=== PATIENT | female | born 1970 | race Caucasian/White ===

== ENCOUNTER → 2016-08-14 | Outpatient (CLI) | payer OTHER ==
--- NOTE | 2016-08-14 09:44 | DIAGNOSTIC IMAGING REPORT ---
TWO VIEW CHEST CLINICAL HISTORY: Chronic cough. FINDINGS: PA and lateral chest radiographs are obtained. No prior studies are available for comparison at the time of dictation. The examination is degraded by large body habitus. The cardiomediastinal silhouette is unremarkable. The lungs and pleural spaces are clear. There is no pneumothorax. The bony thorax appears intact. IMPRESSION: No active disease in the chest. Electronically signed by: Sandro Raman M.D. 08/14/2016 9:42 AM Dictated Date/Time: 08/14/2016 9:41 AM
== END | disposition home or self-care (01) ==
LOC: C.RAD1850 09:28
PROVIDERS: ATTEND Internal Medicine Pulmonary Disease
DX: R05 Cough (principal)

== ENCOUNTER 2017-03-03 15:01 | Emergency (ER) | payer OTHER ==
[2017-03-03 15:04] VITALS: TEMP 37
[2017-03-03] MEDS ORDERED: VERA120T2 PO (15:17)
[2017-03-03] MEDS ORDERED: ASPI81TA28 PO (15:17)
[2017-03-03] MEDS ORDERED: MELO15TA4 PO (15:17)
[2017-03-03] MEDS ORDERED: LISI20TA3 PO (15:17)
[2017-03-03] MEDS ORDERED: VERA240T20 PO (15:17)
[2017-03-03] MEDS ORDERED: ATOR-22 PO (15:17)
[2017-03-03] MEDS ORDERED: XYLOCAINE 1%/SOD BICARB 20 ML VIAL INFIL ONE (15:30)
[2017-03-03] MEDS ORDERED: BUPIVACAINE 0.5 % 5 MG/1 ML MPF 30ML VIAL INFIL ONE (15:30)
[2017-03-03] MEDS ORDERED: GELATIN SPONGE 12-7MM EXT ONE (15:30)
--- NOTE | 2017-03-03 15:44 | EMERGENCY ROOM VISIT NOTE ---
ED Visit Note First contact with patient: 15:08 CHIEF COMPLAINT: Fingertip avulsion HISTORY OF PRESENT ILLNESS: This 46-year-old female patient presents to the emergency department approximately 5 hours after cutting the tip of the left fourth finger with a sharp knife while cutting sweet potatoes. The bleeding has not stopped. There is no weakness or numbness of the area. Tetanus shot is up-to-date. Full range of motion of the left fourth finger. The patient is right handed. The patient rates the pain as stinging and 4/10. REVIEW OF SYSTEMS: A 6 system review of systems was completed with positives and pertinent negatives listed in the HPI. ALLERGIES: Moxifloxacin MEDICATIONS: Lipitor, Mobic, aspirin PMH: Hyperlipidemia, hypertension SOCIAL HISTORY: The patient lives locally with family. She denies drug, alcohol , tobacco use. PHYSICAL EXAM: Vital Signs: Reviewed Nurse's notes, vital signs stable. GENERAL : This is a 46-year-old white female, in no acute distress, well-developed, well -nourished. SKIN: There is a 0.5 cm long avulsion laceration on the tip of the left fourth finger. It is superficial and the top layer of skin has been avulsed. There is no foreign material in the wound and it looks clean. There is active bleeding. No deep structures are seen in the base of the wound. Extension and flexion of the finger is full and strong. Sensation to pain and light touch is intact. EMERGENCY DEPARTMENT COURSE: I examined the patient. Verbal consent was obtained to perform the procedure. The left fourth finger was cleaned with saline and betadine. Gelfoam was applied to the avulsion laceration and the area was dressed with a pressure dressing. The bleeding stopped. The patient tolerated the procedure well. The patient was discharged home in stable condition. I attest that I have personally reviewed the patient's current medication list. Blood Pressure Screening: Patient was found to have a slightly elevated blood pressure due to circumstances. The patient is under the care of her PCP regarding her elevated blood pressure. She will continue to be monitored there. DIFFERENTIAL DIAGNOSIS: Avulsion, laceration, fracture, arterial bleed, and others. DIAGNOSIS: Avulsion laceration of the left fourth fingertip Current/Historical Medications Scheduled Aspirin (Aspirin Ec), 81 MG PO DAILY Atorvastatin (Lipitor), 20 MG PO DAILY Lisinopril (Prinivil), 20 MG PO DAILY Meloxicam (Mobic), 15 MG PO DAILY Verapamil Sust Rel (Calan Sr Ext Rel), 240 MG PO QPM Verapamil Sust Rel (Calan Sr Ext Rel), 120 MG PO QAM Allergies Coded Allergies: Moxifloxacin (Verified Allergy, Severe, HIVES/NAUSEA, 03/03/17) Vital Signs Date Time Temp Pulse Resp B/P (MAP) Pulse Ox O2 Delivery O2 Flow Rate FiO2 03/03/17 15:04 37.0 77 20 157/90 95 Room Air Departure Information Impression Primary Impression: Fingertip avulsion Dispostion Home / Self-Care Condition GOOD Referrals Dwayne Harkins M.D. (PCP) Patient Instructions ED Gelfoam Dressing, [facility] Additional Instructions The gelfoam will fall off on its own. You may change the outer bandage as needed. Please read gelfoam handout. Proper wound care is essential for adequate wound healing and infection prevention. You can shower and clean the wound with soap and water. Do not scour over the wound, pat dry with a towel. Do not submerse the wound (i.e. bathe or dish wash) until the wound has fully healed. You can use an antibiotic ointment with a dressing over the wound for the next 3-4 days. After this time you may leave the wound dry and open to the air. Return to the ED for any redness, swelling, pus-like drainage, significant pain , or bleeding not easily controlled with direct pressure. Please follow-up with your PCP for re-check of the wound in 2-3 days. Problem Qualifiers Primary Impression: Fingertip avulsion Encounter type: initial encounter Qualified Codes: S61.209A - Unspecified open wound of unspecified finger without damage to nail, initial encounter
[2017-03-03 15:56] VITALS: BP 157/90; PULSE 77; O2SAT 95
== END 2017-03-03 15:56 | disposition home or self-care (01) ==
LOC: C.EDB 15:03 → C.EDD 15:56
DX: S61.205A Unspecified open wound of left ring finger without damage to nail, initial encounter (principal); W26.0XXA Contact with knife, initial encounter; Y93.G1 Activity, food preparation and clean up; E78.5 Hyperlipidemia, unspecified; I10 Essential (primary) hypertension

== ENCOUNTER 2017-05-28 17:22 | Emergency (ER) | payer OTHER ==
[~2017-05-28] VITALS: Ht 172.7 cm; Wt 137.1 kg
[~2017-05-28 17:22] MED LIST: ASPI81TA28 PO; ATOR-22 PO; LISI20TA3 PO; MELO15TA4 PO; VERA120T2 PO; VERA240T20 PO
[2017-05-28 17:25] VITALS: TEMP 37.1; Ht 172.7 cm; Wt 137.1 kg
[2017-05-28] MEDS ORDERED: FAMOTIDINE 20MG/5ML IV PUSH IV STA (17:47)
--- NOTE | 2017-05-28 18:29 | DIAGNOSTIC IMAGING REPORT ---
SINGLE VIEW CHEST CLINICAL HISTORY: Atypical chest pain. FINDINGS: An AP, portable, upright chest radiograph is compared to study dated 08/14/2016. The examination is degraded by portable technique, apical lordotic positioning, and patient rotation. The cardiomediastinal silhouette is unremarkable. The lungs and pleural spaces are clear. No pneumothorax is seen. The bony thorax is grossly intact. IMPRESSION: No active disease in the chest. Electronically signed by: Sandro Raman M.D. 05/28/2017 6:27 PM Dictated Date/Time: 05/28/2017 6:27 PM
[2017-05-28] MEDS ORDERED: ASCA500 PO (18:33)
[2017-05-28 19:14] LABS: BASO % 0.3 %; BASO ABS # 0.03 K/uL (0-0.2); EOS % 1.7 %; EOS ABS # 0.16 K/uL (0-0.5); HEMATOCRIT 39.4 % (37-47); HEMOGLOBIN 13.4 g/dL (12.0-16.0); IG# 0.02 K/uL (0.00-0.02); LYMPH % 22.8 %; MEAN CELL VOLUME 89.5 fL (80-100); MEAN CORPUSCULAR HEMOGLOBIN 30.5 pg (25-34); MONO % 7.6 %; NEUT % 67.4 %; NEUT ABS # 6.22 K/uL (1.4-6.5); PLATELET COUNT 295 K/uL (130-400); RED CELL DISTRIBUTION WIDTH SD 42.3 fL (36.4-46.3); WHITE BLOOD COUNT 9.23 K/uL (4.8-10.8)
[2017-05-28 19:30] LABS: PTT PATIENT 28.5 SECONDS (21.0-31.0)
[2017-05-28 19:31] LABS: ALBUMIN 3.8 gm/dl (3.4-5.0); ALT/SGPT 22 U/L (12-78); BLOOD UREA NITROGEN 25 mg/dl (7-18); CALCIUM 9.1 mg/dl (8.5-10.1); CARBON DIOXIDE 25 mmol/L (21-32); CREATININE 0.72 mg/dl (0.60-1.20); GLUCOSE 97 mg/dl (70-99); LIPASE 215 U/L (73-393); POTASSIUM 3.7 mmol/L (3.5-5.1); SODIUM 137 mmol/L (136-145)
[2017-05-28 19:37] LABS: ALKALINE PHOSPHATASE 98 U/L (45-117); AST/SGOT 11 U/L (15-37); CKMB < 0.5 ng/ml (0.5-3.6); TOTAL PROTEIN 7.7 gm/dl (6.4-8.2)
[2017-05-28] MEDS ORDERED: OPTIRAY 320 IV PRN (20:15)
--- NOTE | 2017-05-28 20:59 | DIAGNOSTIC IMAGING REPORT ---
CT ANGIOGRAM OF THE CHEST CLINICAL HISTORY: Atypical chest pain. COMPARISON STUDY: Chest x-ray dated 05/28/2017. TECHNIQUE: Following the IV administration of 101 cc of Optiray 320, CT angiogram of the chest was performed from the upper abdomen to the thoracic inlet utilizing the pulmonary embolus protocol. Images are reviewed in the axial, sagittal, and coronal planes. 3-D MIPS images are created and assessed. IV contrast was administered without complication. A dose lowering technique was utilized adhering to the principles of ALARA. CT DOSE: 738.68 mGy.cm FINDINGS: Thyroid: Imaged portions of the thyroid gland are normal in size and attenuation. Thoracic aorta: There is mild ectasia of the ascending thoracic aorta which measures up to 4.0 cm. The remainder of the thoracic aorta is normal in caliber and the arch demonstrates bovine variant anatomy. No dissection is seen. Pulmonary vasculature: The pulmonary trunk is normal in caliber. There are no filling defects identified in main, lobar, or segmental pulmonary branches to suggest pulmonary embolus. Heart: The heart is mildly enlarged and without pericardial effusion. Lungs and pleural spaces: The lungs and pleural spaces are clear. Mediastinum: There is no mediastinal lymphadenopathy. Ariadne: Clear. Axillae: There is no axillary lymphadenopathy. Upper abdomen: A small hiatal hernia is identified. Partially visualized upper abdominal viscera is otherwise within normal limits. Skeletal structures: No lytic or blastic bony lesions are seen. IMPRESSION: 1. There is no evidence of pulmonary embolus in the main, lobar, or segmental pulmonary arteries. 2. The lungs are clear. 3. Mild cardiomegaly. 4. There is mild ectasia of the ascending thoracic aorta which measures up to 4.0 cm. Electronically signed by: Sandro Raman M.D. 05/28/2017 8:57 PM Dictated Date/Time: 05/28/2017 8:54 PM
--- NOTE | 2017-05-28 21:30 | EMERGENCY ROOM VISIT NOTE ---
ED Visit Note First contact with patient: 17:36 The patient was seen and examined with Adrien Garcia PA-C. I agree with the history, physical and findings. Please see the note for disposition and details.
--- NOTE | 2017-05-28 22:48 | DIAGNOSTIC IMAGING REPORT ---
ULTRASOUND BILATERAL LOWER EXTREMITY VENOUS CLINICAL HISTORY: Elevated d-dimer. COMPARISON STUDY: No priors. TECHNIQUE: Real-time, grayscale, and color Doppler sonography of the deep veins of the right and left lower extremity was performed from the inguinal crease to the calf. Compression and augmentation were utilized. FINDINGS: There is no sonographic evidence of deep venous thrombosis identified in the right or left lower extremity. The common femoral, superficial femoral, and popliteal veins are patent and normally compressible bilaterally. The greater saphenous vein and the profunda femoris vein at the junction with the common femoral vein are clear in both legs. The visualized calf veins are patent bilaterally. IMPRESSION: There is no sonographic evidence of deep venous thrombosis identified in the right or left lower extremity. Electronically signed by: Sandro Raman M.D. 05/28/2017 10:47 PM Dictated Date/Time: 05/28/2017 10:46 PM
[2017-05-28 23:09] VITALS: BP 141/91; PULSE 79; O2SAT 96
--- NOTE | 2017-06-16 07:29 | EMERGENCY ROOM VISIT NOTE ---
History First contact with patient: 17:36 Chief Complaint: CHEST PAIN Stated Complaint: CHEST PAIN,L ARM PAIN,BACK PAIN,NAUSEA,INDIGESTION Nursing Triage Summary: patient c/o left sided chest pain that radiates to back into left shoulder and left neck. denies SOB pain intermittent x 3 days but put incresed 2 hours ago. History of Present Illness The patient is a 46 year old female who presents to the Emergency Room with complaints of 3 day history of left shoulder pain, neck pain, left upper extremity pain and dyspepsia. The patient reports that the pain started in the left posterior shoulder 3 days ago, then started to radiate into the neck and jaw. The patient reports mild left-sided chest pain without shortness of breath. The patient denies any recent chest injury. The patient does have a strong family history of coronary artery disease. Her father at the age of 44 from myocardial infarction. The patient has a history of hypertension, hypercholesterolemia and hyperlipidemia. The patient reports that she did have an abnormal ECG approximately 6 months ago, and underwent a dobutamine stress test that was normal. This was performed by Dr. Wills. She was noted to have a blood pressure of 125/180 with a stress test. She is currently on a combination of verapamil and lisinopril for her blood pressure. The patient does report a history of reflux, and takes Prilosec as needed. The patient is wondering whether her pain could be secondary to her gallbladder. The patient reports that the pain did significantly worsen after eating a meal with a lot of gravy 3 days ago. She denies any diaphoresis, nausea or lower abdominal pain. The patient also denies any history of neck problems. She denies any urinary symptoms, constipation or diarrhea. She denies history of prior cardiopulmonary disease except as indicated previously. She currently rates her discomfort a 5 out of 10. Review of Systems HEENT: Denies dizziness, visual problems, hearing loss, tinnitus. Denies difficulty swallowing or oral lesions. PULMONARY: Denies cough, shortness of breath, sputum production or hemoptysis. CARDIOVASCULAR: Denies palpitations, dyspnea on exertion, orthopnea or peripheral edema. GASTROINTESTINAL: Denies diarrhea, constipation, nausea, vomiting, or abdominal pain. Otherwise see history of present illness for history of acid reflux. GENITOURINARY: Denies dysuria, frequency, urgency or nocturia. NEUROLOGIC: Denies history of epilepsy, CVA, TIA or chronic headaches. MUSCULOSKELETAL: Denies history of joint tenderness/swelling. SKIN: Denies rashes or lesions. PSYCHIATRIC: Denies history of depression or mental illness. ENDOCRINE: Denies history of diabetes or thyroid disorders. Past Medical/Surgical History Medical Problems: (1) Essential (Primary) Hypertension (2) GERD (gastroesophageal reflux disease) (3) Hypercholesterolemia (4) Hyperlipidemia, Unspecified Social History Smoking Status: Never Smoker Alcohol Use: occasionally Marital Status: Housing Status: lives with family Occupation Status: employed Current/Historical Medications Scheduled Ascorbic Acid (Vitamin C), 500 MG PO DAILY Aspirin (Aspirin Ec), 81 MG PO DAILY Atorvastatin (Lipitor), 20 MG PO DAILY Lisinopril (Prinivil), 20 MG PO DAILY Meloxicam (Mobic), 15 MG PO DAILY Verapamil Sust Rel (Calan Sr Ext Rel), 240 MG PO HS Verapamil Sust Rel (Calan Sr Ext Rel), 120 MG PO QPM Physical Exam Vital Signs Date Time Temp Pulse Resp B/P (MAP) Pulse Ox O2 Delivery O2 Flow Rate FiO2 05/28/17 23:09 79 141/91 96 05/28/17 22:17 70 05/28/17 19:17 69 20 134/85 98 Room Air 05/28/17 19:04 Room Air 05/28/17 17:47 75 05/28/17 17:25 37.1 75 18 159/88 97 Room Air Physical Exam CONSTITUTIONAL: Morbidly female, alert and oriented X 3 with positive affect. Patient is not appear in any acute distress on exam. HEENT: Normocephalic, atraumatic. Pupils equal, round and reactive. No scleral icterus or conjunctival injection/pallor. NECK: Full active range of motion without discomfort. Negative lateral gaze test, and no tenderness to palpation of the cervical musculature or central cervical spine. RESPIRATORY: Clear to auscultation bilaterally with no wheezing, crackles, rhonchi or stridor. CARDIOVASCULAR: Regular rate and rhythm with no murmurs, rubs or gallops. GASTROINTESTINAL: Bowel sounds present in all quadrants. Soft and nontender to palpation. MUSCULOSKELETAL: Examination does not show any discomfort with palpation of the left posterior shoulder and neck region. No tenderness to palpation through the acromioclavicular joint, triceps or biceps musculature. Equal hand cylindrical mixer bilaterally. No tenderness to palpation through the intrascapular region. INTEGUMENTARY: No rash or other significant dermatologic conditions noted. NEUROLOGIC: No focal neurologic deficits noted. Upper extremity's are sensory intact. Medical Decision & Procedures ER Provider Diagnostic Interpretation: My interpretation of an initial ECG shows a normal sinus rhythm of [address] elevation or other conduction abnormalities. My interpretation of a portable chest x-ray does not show any consolidations, pneumothorax or cardiac prominence. Radiologist report is as follows: SINGLE VIEW CHEST CLINICAL HISTORY: Atypical chest pain. FINDINGS: An AP, portable, upright chest radiograph is compared to study dated 08/14/2016. The examination is degraded by portable technique, apical lordotic positioning, and patient rotation. The cardiomediastinal silhouette is unremarkable. The lungs and pleural spaces are clear. No pneumothorax is seen. The bony thorax is grossly intact. IMPRESSION: No active disease in the chest. Chest CT angiography does not show any evidence for acute pulmonary embolus, consolidations or other acute findings. Radiologist report is as follows: CT ANGIOGRAM OF THE CHEST CLINICAL HISTORY: Atypical chest pain. COMPARISON STUDY: Chest x-ray dated 05/28/2017. TECHNIQUE: Following the IV administration of 101 cc of Optiray 320, CT angiogram of the chest was performed from the upper abdomen to the thoracic inlet utilizing the pulmonary embolus protocol. Images are reviewed in the axial, sagittal, and coronal planes. 3-D MIPS images are created and assessed. IV contrast was administered without complication. A dose lowering technique was utilized adhering to the principles of ALARA. CT DOSE: 738.68 mGy.cm FINDINGS: Thyroid: Imaged portions of the thyroid gland are normal in size and attenuation. Thoracic aorta: There is mild ectasia of the ascending thoracic aorta which measures up to 4.0 cm. The remainder of the thoracic aorta is normal in caliber and the arch demonstrates bovine variant anatomy. No dissection is seen. Pulmonary vasculature: The pulmonary trunk is normal in caliber. There are no filling defects identified in main, lobar, or segmental pulmonary branches to suggest pulmonary embolus. Heart: The heart is mildly enlarged and without pericardial effusion. Lungs and pleural spaces: The lungs and pleural spaces are clear. Mediastinum: There is no mediastinal lymphadenopathy. Ariadne: Clear. Axillae: There is no axillary lymphadenopathy. Upper abdomen: A small hiatal hernia is identified. Partially visualized upper abdominal viscera is otherwise within normal limits. Skeletal structures: No lytic or blastic bony lesions are seen. IMPRESSION: 1. There is no evidence of pulmonary embolus in the main, lobar, or segmental pulmonary arteries. 2. The lungs are clear. 3. Mild cardiomegaly. 4. There is mild ectasia of the ascending thoracic aorta which measures up to 4.0 cm. Laboratory Results 05/28/17 18:58 Red Blood Count 4.40, Mean Corpuscular Volume 89.5, Mean Corpuscular Hemoglobin 30.5, Mean Corpuscular Hemoglobin Concent 34.0, Mean Platelet Volume 10.0, Neutrophils (%) (Auto) 67.4, Lymphocytes (%) (Auto) 22.8, Monocytes (%) (Auto) 7.6, Eosinophils (%) (Auto) 1.7, Basophils (%) (Auto) 0.3, Neutrophils # (Auto) 6.22, Lymphocytes # (Auto) 2.10, Monocytes # (Auto) 0.70, Eosinophils # (Auto) 0.16, Basophils # (Auto) 0.03 05/28/17 18:58 Test 05/28/17 18:58 White Blood Count 9.23 K/uL (4.8-10.8) Red Blood Count 4.40 M/uL (4.2-5.4) Hemoglobin 13.4 g/dL (12.0-16.0) Hematocrit 39.4 % (37-47) Mean Corpuscular Volume 89.5 fL (80-100) Mean Corpuscular Hemoglobin 30.5 pg (25-34) Mean Corpuscular Hemoglobin Concent 34.0 g/dl (32-36) Platelet Count 295 K/uL (130-400) Mean Platelet Volume 10.0 fL (7.4-10.4) Neutrophils (%) (Auto) 67.4 % Lymphocytes (%) (Auto) 22.8 % Monocytes (%) (Auto) 7.6 % Eosinophils (%) (Auto) 1.7 % Basophils (%) (Auto) 0.3 % Neutrophils # (Auto) 6.22 K/uL (1.4-6.5) Lymphocytes # (Auto) 2.10 K/uL (1.2-3.4) Monocytes # (Auto) 0.70 K/uL (0.11-0.59) Eosinophils # (Auto) 0.16 K/uL (0-0.5) Basophils # (Auto) 0.03 K/uL (0-0.2) RDW Standard Deviation 42.3 fL (36.4-46.3) RDW Coefficient of Variation 13.0 % (11.5-14.5) Immature Granulocyte % (Auto) 0.2 % Immature Granulocyte # (Auto) 0.02 K/uL (0.00-0.02) Prothrombin Time 10.7 SECONDS (9.0-12.0) Prothromb Time International Ratio 1.0 (0.9-1.1) Activated Partial Thromboplast Time 28.5 SECONDS (21.0-31.0) Partial Thromboplastin Ratio 1.1 D-Dimer 2510 ug/L FEU (0-500) Anion Gap 10.0 mmol/L (3-11) Est Creatinine Clear Calc Drug Dose 145.1 ml/min Estimated GFR () 117.2 Estimated GFR (Non- 101.1 BUN/Creatinine Ratio 34.2 (10-20) Calcium Level 9.1 mg/dl (8.5-10.1) Total Bilirubin 0.2 mg/dl (0.2-1) Direct Bilirubin < 0.1 mg/dl (0-0.2) Aspartate Amino Transf (AST/SGOT) 11 U/L (15-37) Alanine Aminotransferase (ALT/SGPT) 22 U/L (12-78) Alkaline Phosphatase 98 U/L (45-117) Total Creatine Kinase 88 U/L (26-192) Creatine Kinase MB < 0.5 ng/ml (0.5-3.6) Creatine Kinase MB Ratio (0-3.0) Troponin I < 0.015 ng/ml (0-0.045) Total Protein 7.7 gm/dl (6.4-8.2) Albumin 3.8 gm/dl (3.4-5.0) Lipase 215 U/L (73-393) The above labs were reviewed. D-dimer is elevated. Troponin, CBC, partial renal profile, LFTs and lipase are otherwise normal. Medications Administered Medications (Trade) Dose Ordered Sig/Faustino Route Start Time Stop Time Status Last Admin Dose Admin Famotidine (Pepcid 20mg Iv Push) 20 mg ONE STAT IV 05/28/17 17:47 05/28/17 17:51 DC 05/28/17 19:13 20 MG ED Course Patient history and physical exam were performed. Nurse's notes were reviewed. Vital signs were reviewed, showing a blood pressure 159/88. O2 saturation is normal. IV access was ordered, however the patient's requested a straight stick lab draw. The patient was offered IV Pepcid but also refused that. She also refused a GI cocktail. I was unaware that the ED staff was able to establish a 22-gauge intravenous access, and the patient was administered IV Pepcid, which provided approximately 10 minutes worth of relief. ECG and portable chest x-ray were normal. Review of labs shows an elevated d-dimer with remaining labs being normal. The patient was advised of her elevated d- dimer level. The patient was advised that the 22-gauge access would have to be switched to an 18-gauge in order to perform a chest CT angiography. The patient was in agreement. IV team came to the emergency department for this switch. Chest CT angiography was negative for pulmonary embolus, consolidation or other acute findings. The case was further discussed with Dr. Napier, ED attending physician, who also evaluated the patient and recommended bilateral lower extremity venous Dopplers to rule out DVT. The patient was in agreement. Ultrasound studies were normal with no evidence for DVT in the lower extremities. The patient was instructed to follow-up with her PCP within the next 2-3 days. She was encouraged to increase her Prilosec to 40 mg daily. She may also take Zantac 150 mg twice daily for additional relief. She was instructed to return to the emergency department for any progressively worsening symptoms, diaphoresis, nausea or other concerns. The patient was happy with plan of care , and voiced understanding of all discharge instructions. Medical Decision Workup today is not suggestive of acute myocardial infarction, pneumothorax or pneumonia. Given a normal d-dimer, I do not suspect pulmonary embolus. Musculoskeletal etiology is considered. I also considered GERD or other GI etiologies. Laboratory studies are not suggestive of pancreatitis, cholecystitis or hepatitis. I do not suspect bowel obstruction, PID, pyelonephritis, diverticulitis or appendicitis. I also feel that the patient is at low risk for aortic dissection. Medication Reconcilliation Current Medication List: was personally reviewed by me Blood Pressure Screening Patient's blood pressure: Elevated blood pressure Blood pressure disposition: Referred to PCP Impression Primary Impression: Left sided chest pain Additional Impression: Left shoulder pain Departure Information Referrals Dwayne Harkins M.D. (PCP) Patient Instructions My [facility] Problem Qualifiers Additional Impression: Left shoulder pain Chronicity: acute Qualified Codes: M25.512 - Pain in left shoulder
== END 2017-05-28 23:10 | disposition home or self-care (01) ==
LOC: C.EDB 17:23 → C.EDA 23:10
DX: R07.9 Chest pain, unspecified (principal); M25.512 Pain in left shoulder; I10 Essential (primary) hypertension; K21.9 Gastro-esophageal reflux disease without esophagitis; E78.00 Pure hypercholesterolemia, unspecified; E78.5 Hyperlipidemia, unspecified; Z82.49 Family history of ischemic heart disease and other diseases of the circulatory system; Z79.82 Long term (current) use of aspirin; Z79.899 Other long term (current) drug therapy